=== PATIENT | male | born 1985 | race American Indian/Alaskan Native ===

== ENCOUNTER 2018-11-23 20:03 | Emergency (ER) | payer OTHER ==
[2018-11-23 20:57] VITALS: BP 144/86
[2018-11-24] MEDS ORDERED: BOOSTRIX IM ONE (00:20)
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
== END 2018-11-24 02:42 | disposition home or self-care (01) ==
LOC: ED 20:03
DX: S61.432A Puncture wound without foreign body of left hand, initial encounter (principal); W26.0XXA Contact with knife, initial encounter; Y93.89 Activity, other specified; Y92.89 Other specified places as the place of occurrence of the external cause; Y99.8 Other external cause status
CPT/HCPCS: 90471; 90715